=== PATIENT | male | born 1975 | race Caucasian/White ===

== ENCOUNTER 2020-05-31 09:21 | Inpatient (IN) | payer BC ==
[2020-05-31 10:07] LABS: Absolute Lymphocytes (CBC) 1.4 K/uL (0.7-4.9); Basophils % 1.2 % (0-1.3); Hematocrit 46.2 % (39.6-49.0); Lymphocytes % 9.8 % (15.3-44.8); MPV 9.9 fL (7.6-11.3); RBC Red Blood Cell Count 4.86 M/uL (4.33-5.43)
[2020-05-31] MEDS ORDERED: ONDANSETRON 4 MG/2 ML VIAL ONE ×2 (10:08→12:06)
[2020-05-31] MEDS ORDERED: KETOROLAC 30 MG/ML INJ ONE (10:08)
[2020-05-31 10:30] LABS: Bilirubin Total 0.9 mg/dL (0.2-1.0)
[2020-05-31 10:31] LABS: Albumin 4.2 g/dL (3.4-5.0); Bilirubin Direct 0.2 mg/dL (0-0.2); Protein, Total 7.9 g/dL (6.4-8.2)
--- NOTE | 2020-05-31 10:40 | RAD REPORT ---
EXAM DESCRIPTION: CT - Abdomen Pelvis W Contrast - 05/31/2020 10:18 am CLINICAL HISTORY: abd pain COMPARISON: No comparisons TECHNIQUE: Biphasic, helical CT imaging of the abdomen and pelvis was performed following 100 ml non -ionic IV contrast. No oral contrast administered. All CT scans are performed using dose optimization technique as appropriate and may include automated exposure control or mA/KV adjustment according to patient size. FINDINGS: No suspicious findings in the lung bases. Liver shows diffuse fatty infiltration. Liver size is upper normal. There are no focal liver lesions no portal vein abnormality identified. Spleen contains a 7.7 centimeter cyst or low-density mass with peripheral rim calcification. This is not felt to be of acute clinical significance. No solid or cystic mass of the pancreas identified. There is stranding and edema adjacent to the head of the pancreas and a portion of the body. Antrum of the stomach is prominent as well. There is stra nding and edema adjacent to the duodenal C-loop. Hyperdense material in the stomach could be a small amount of ingested contrast or may be an dense medication such as Pepto-Bismol. No other portion of t he gastric wall is prominent. Minimal hiatal hernia is present. Symmetric renal function is seen with no hydronephrosis or suspicious renal mass. No pyelonephritis o r acute parenchymal process. No bladder abnormalities. No adrenal abnormalities. No large or small bowel acute finding. No free air or pneumatosis. No free fluid is seen. No other a chi of inflammatory stranding. No hernia, mass or bulky lymphadenopathy. No suspicious bony findings. IMPRESSION: Edematous stranding is seen in the tissues adjacent to the pancreas, duodenal C-loop and gastric antrum. Villagomez of the gastric antrum are prominent. No solid or cystic mass of the pancreas. No CT evidence for active gallbladder process. Acute pancreatitis is suspected and needs correlation with clinical findings and laboratory findings. Antritis or duodenitis would be possible as well. Additional nonacute findings detailed in the body of the report.
[2020-05-31] MEDS ORDERED: MAGNE/ALUM HYDROXD 30 ML UCUP ONE (10:48)
[2020-05-31] MEDS ORDERED: LIDOCAINE VISCOUS 2% SOLN 15 ML UDC ONE (10:48)
[2020-05-31] MEDS ORDERED: PANTOPRAZOLE 40 MG INJ ONE (10:50)
--- NOTE | 2020-05-31 10:58 | ER ---
Nurse's Notes [facility] Name: Huber Manriquez Jr Age: 44 yrs Sex: Male : 1975 Arrival Date: 05/31/2020 Time: 09:24 Bed 19 Private MD: Diagnosis: Acute pancreatitis Presentation: 05/31 09:39 Chief complaint: Patient states: Epigastric pain that feels like "a knot" that began at ss 0400 this morning. Pt reports that last time this happened it was a "gallbladder attack.". Coronavirus screen: Client denies travel out of the [place] in the last 14 days. At this time, the client does not indicate any symptoms associated with coronavirus-19. Ebola Screen: Patient denies exposure to infectious person. Patient denies travel to an Ebola-affected area in the 21 days before illness onset. Initial Sepsis Screen: Does the patient meet any 2 criteria? No. Patient's initial sepsis screen is negative. Does the patient have a suspected source of infection? No. Patient's initial sepsis screen is negative. Risk Assessment: Do you want to hurt yourself or someone else? Patient reports no desire to harm self or others. Onset of symptoms was May 31, 2020. 09:39 Method Of Arrival: Ambulatory ss 09:39 Acuity: ENEIDA 3 ss Historical: - Allergies: 09:43 No Known Allergies; ss - Immunization history:: Adult Immunizations up to date. - Social history:: Smoking status: Patient denies any tobacco usage or history of. Patient uses alcohol, only on a social basis. Screenin:30 Abuse screen: Denies threats or abuse. Denies injuries from another. Nutritional jr10 screening: No deficits noted. Tuberculosis screening: No symptoms or risk factors identified. Fall Risk No fall in past 12 months (0 pts). No secondary diagnosis (0 pts). IV access (20 points). Ambulatory Aid- None/Bed Rest/Nurse Assist (0 pts). Gait- Normal/Bed Rest/Wheelchair (0 pts) Mental Status- Oriented to own ability (0 pts). Assessment: 10:30 General: Appears uncomfortable, Behavior is calm, cooperative, appropriate for age. jr10 Pain: Complains of pain in abdomen Pain does not radiate. Pain currently is 8 out of 10 on a pain scale. Quality of pain is described as burning, sharp, shooting, Pain began suddenly, this morning Is continuous, Aggravated by eating, drinking. Neuro: No deficits noted. Cardiovascular: No deficits noted. Respiratory: No deficits noted. Airway is patent Respiratory effort is even, unlabored, Respiratory pattern is regular, symmetrical, Breath sounds are clear bilaterally. GI: Abdomen is distended, Bowel sounds present X 4 quads. Abdomen is tender to palpation in epigastric area, right upper quadrant and left upper quadrant. : No deficits noted. No signs and/or symptoms were reported regarding the genitourinary system. EENT: No deficits noted. No signs and/or symptoms were reported regarding the EENT system. Derm: No deficits noted. No signs and/or symptoms reported regarding the dermatologic system. Musculoskeletal: No deficits noted. No signs and/or symptoms reported regarding the musculoskeletal system. 10:30 Reassessment: Pt back from CT via w/c with radiology supervisor, reports no relief with pain jr10 medication administered prior to CT. Dr Kong notified and aware. Vital Signs: 09:39 BP 150 / 95; Pulse 85; Resp 19; Temp 98.3(O); Pulse Ox 99% on R/A; Weight 88.45 kg; ss Height 5 ft. 8 in. (172.72 cm); Pain 9/10; 10:45 BP 158 / 109; Pulse 88; Resp 20; Pulse Ox 99% on R/A; Pain 8/10; jr10 12:06 BP 161 / 92; Pulse 95; Resp 20; Pulse Ox 94% on R/A; jr10 13:17 BP 155 / 92; Pulse 88; Resp 20; Pulse Ox 98% on R/A; Pain 8/10; ss 09:39 Body Mass Index 29.65 (88.45 kg, 172.72 cm) ED Course: 09:24 Patient arrived in ED. ds1 09:26 Delgado Kong MD is Attending Physician. ps1 09:39 Arm band placed on right wrist. ss 09:43 Triage completed. ss 09:58 Aspen Jackson, DEWAYNE is Primary Nurse. jr10 10:00 Inserted saline lock: 22 gauge in right antecubital area, using aseptic technique. jr10 ,using aseptic technique. via KJ, PCT Blood collected. IV is patent, is intact, with good blood return, Flushed. 10:[address] via wheelchair. md1 10:18 CT completed. Patient tolerated procedure well. Patient moved back from CT. md1 10:57 Delgado Kong MD is Hospitalizing Provider. ps1 10:57 Darshan Tejeda MD is Hospitalizing Provider. ps1 11:13 Patient has correct armband on for positive identification. Bed in low position. Call jr10 light in reach. Side rails up X2. Pulse ox on. NIBP on. 13:18 No provider procedures requiring assistance completed. Patient admitted, IV remains in ss place. intact, No redness/swelling at site. Administered Medications: 10:00 Drug: Zofran (Ondansetron) 4 mg Route: IVP; Site: right antecubital; ss 10:40 Follow up: Response: No adverse reaction jr10 10:02 Drug: TORadol - Ketorolac 15 mg Route: IVP; Site: right antecubital; ss 10:41 Follow up: Response: No adverse reaction; Pain is unchanged, physician notified jr10 10:50 Drug: ProTONIX 80 mg Route: IVP; Site: right antecubital; jr10 11:56 Follow up: Response: No adverse reaction jr10 10:50 Drug: GI Cocktail without - (Maalox Suspension 30 ml, Lidocaine Liquid 2 % 15 jr10 ml) Route: PO; 11:56 Follow up: Response: No adverse reaction; Pain is unchanged, physician notified jr10 11:56 Drug: morphine 4 mg Route: IVP; Site: right antecubital; jr10 13:15 Follow up: Response: No adverse reaction; Pain is unchanged, physician notified ss 12:05 Drug: Zofran (Ondansetron) 4 mg Route: IVP; Site: right antecubital; jr10 13:16 Follow up: Response: No adverse reaction; Pain is unchanged, physician notified Outcome: 10:57 Decision to Hospitalize by Provider. ps1 13:18 Admitted to Med/surg accompanied by tech, via wheelchair, room 213, with chart, Report ss called to DEWAYNE Huynh 13:18 Condition: stable 13:18 Instructed on the need for admit, Demonstrated understanding of instructions. 13:39 Patient left the ED. Signatures: Sunshine Pelayo ds1 Carolyn Reed RN RN ss Delgado Kong MD MD ps1 Pamela Montilla md1 Aspen Jackson, DEWAYNE RN jr10
--- NOTE | 2020-05-31 10:58 | EDPHYS ---
Physician Documentation [facility] Name: Huber Manriquez Jr Age: 44 yrs Sex: Male : 1975 Arrival Date: 05/31/2020 Time: 09:24 Bed 19 Private MD: ED Physician Delgado Kong HPI: 05/31 09:41 This 44 yrs old Male presents to ER via Unassigned with complaints of ps1 Abdominal Pain. 09:41 The patient presents with abdominal pain. Onset: The symptoms/episode began/occurred ps1 this morning. The symptoms do not radiate. The symptoms are described as sharp, stabbing. Modifying factors: the symptoms are aggravated by food. Severity of pain: At its worst the pain was severe in the emergency department the pain is unchanged. Out of town from [place]. Hx of biliary colic. Ate fried food last night. . Historical: - Allergies: 09:43 No Known Allergies; ss - Immunization history:: Adult Immunizations up to date. - Social history:: Smoking status: Patient denies any tobacco usage or history of. Patient uses alcohol, only on a social basis. ROS: 09:41 Constitutional: Negative for fever, chills, and weight loss, Eyes: Negative for injury, ps1 pain, redness, and discharge, Cardiovascular: Negative for chest pain, palpitations, and edema, Respiratory: Negative for shortness of breath, cough, wheezing, and pleuritic chest pain, MS/Extremity: Negative for injury and deformity, Skin: Negative for injury, rash, and discoloration, Neuro: Negative for headache, weakness, numbness, tingling, and seizure. 09:41 Abdomen/GI: Positive for abdominal pain. Exam: 09:41 Constitutional: This is a well developed, well nourished patient who is awake, alert, ps1 and in no acute distress. Head/Face: Normocephalic, atraumatic. Eyes: Pupils equal round and reactive to light, extra-ocular motions intact. Lids and lashes normal. Conjunctiva and sclera are non-icteric and not injected. Cardiovascular: Regular rate and rhythm. No gallops, murmurs, or rubs. Normal PMI, no JVD. No pulse deficits. Respiratory: Lungs have equal breath sounds bilaterally, clear to auscultation and percussion. No rales, rhonchi or wheezes noted. No increased work of breathing, no retractions or nasal flaring. Skin: Warm, dry with normal turgor. Normal color with no rashes, no lesions, and no evidence of cellulitis. MS/ Extremity: Pulses equal, no cyanosis. Neurovascular intact. Full, normal range of motion. Neuro: Awake and alert, GCS 15, oriented to person, place, time, and situation. Cranial nerves II-XII grossly intact. Sensory grossly intact. 09:41 Abdomen/GI: Inspection: abdomen appears normal, Palpation: mild abdominal tenderness, in the right upper quadrant. Vital Signs: 09:39 BP 150 / 95; Pulse 85; Resp 19; Temp 98.3(O); Pulse Ox 99% on R/A; Weight 88.45 kg; ss Height 5 ft. 8 in. (172.72 cm); Pain 9/10; 10:45 BP 158 / 109; Pulse 88; Resp 20; Pulse Ox 99% on R/A; Pain 8/10; jr10 12:06 BP 161 / 92; Pulse 95; Resp 20; Pulse Ox 94% on R/A; jr10 13:17 BP 155 / 92; Pulse 88; Resp 20; Pulse Ox 98% on R/A; Pain 8/10; ss 09:39 Body Mass Index 29.65 (88.45 kg, 172.72 cm) ss MDM: 09:41 Patient medically screened. ps1 10:57 Data reviewed: vital signs, nurses notes, lab test result(s), radiologic studies, and ps1 as a result, I will admit patient. Counseling: I had a detailed discussion with the patient and/or guardian regarding: the historical points, exam findings, and any diagnostic results supporting the discharge/admit diagnosis, lab results, radiology results, the need for further work-up and treatment in the hospital, Patient to be admitted NPO. Has leukocytosis with elevated glucose and transaminases. Lipase 2200. Has stranding. Will admit for fluids pain control and further evaluation and management. . 08 09:44 Order name: Basic Metabolic Panel ps1 05/31 09:44 Order name: CBC with Diff ps1 05/31 09:44 Order name: Hepatic Function ps1 05/31 09:44 Order name: Lipase ps1 05/31 10:11 Order name: CBC with Automated Diff; Complete Time: 10:24 EDMS 05/31 10:24 Interpretation: WBC 14.1. ps1 05/31 10:27 Order name: CREATININE WHOLE BLOOD; Complete Time: 10:38 EDMS 05/31 09:44 Order name: CT Abd/Pelvis - IV Contrast Only ps1 05/31 10:31 Order name: Basic Metabolic Panel; Complete Time: 10:38 EDMS 05/31 10:51 Interpretation: Abnormal: GLUC 232. ps1 05/31 10:31 Order name: Liver (Hepatic) Function; Complete Time: 10:38 EDMS 05/31 10:31 Order name: Lipase; Complete Time: 10:38 EDMS 05/31 10:50 Interpretation: Abnormal: LIP 2206. ps1 05/31 10:40 Order name: CT; Complete Time: 10:41 EDMS 05/31 09:44 Order name: IV Saline Lock; Complete Time: 09:56 ps1 05/31 09:44 Order name: Labs collected and sent; Complete Time: 09:56 ps1 Administered Medications: 10:00 Drug: Zofran (Ondansetron) 4 mg Route: IVP; Site: right antecubital; ss 10:40 Follow up: Response: No adverse reaction jr10 10:02 Drug: TORadol - Ketorolac 15 mg Route: IVP; Site: right antecubital; ss 10:41 Follow up: Response: No adverse reaction; Pain is unchanged, physician notified jr10 10:50 Drug: ProTONIX 80 mg Route: IVP; Site: right antecubital; jr10 11:56 Follow up: Response: No adverse reaction jr10 10:50 Drug: GI Cocktail without - (Maalox Suspension 30 ml, Lidocaine Liquid 2 % 15 jr10 ml) Route: PO; 11:56 Follow up: Response: No adverse reaction; Pain is unchanged, physician notified jr10 11:56 Drug: morphine 4 mg Route: IVP; Site: right antecubital; jr10 13:15 Follow up: Response: No adverse reaction; Pain is unchanged, physician notified ss 12:05 Drug: Zofran (Ondansetron) 4 mg Route: IVP; Site: right antecubital; jr10 13:16 Follow up: Response: No adverse reaction; Pain is unchanged, physician notified ss Disposition: 05/31/20 10:57 Hospitalization ordered by Darshan Tejeda for Observation. Preliminary diagnosis is Acute pancreatitis. - Bed requested for Telemetry/MedSurg (observation). - Status is Observation. ss - Condition is Stable. - Problem is new. - Symptoms are unchanged. Signatures: Dispatcher [employer] EDMS Johanny Arellano bd Carolyn Reed, DEWAYNE RN ss Delgado Kong MD MD ps1 Aspen Jackson RN RN jr10 Corrections: (The following items were deleted from the chart) 12:34 10:57 Hospitalization Ordered by Darshan Tejeda MD for Observation. Preliminary bd diagnosis is Acute pancreatitis. Bed requested for Telemetry/MedSurg (observation). Status is Observation. Condition is Stable. Problem is new. Symptoms are unchanged. ps1 13:39 12:34 05/31/2020 10:57 Hospitalization Ordered by Darshan Tejeda MD for Observation. ss Preliminary diagnosis is Acute pancreatitis. Bed requested for Telemetry/MedSurg (observation). Status is Observation. Condition is Stable. Problem is new. Symptoms are unchanged. bd
[2020-05-31] MEDS ORDERED: MORPHINE 4 MG/ML SYR ONE (11:56)
[2020-05-31] MEDS ORDERED: ACETAMINOPHEN 500 MG TAB PO PRN (14:01)
[2020-05-31] MEDS ORDERED: MORPHINE 4 MG/ML SYR IV PRN (14:01)
[2020-05-31] MEDS ORDERED: ONDANSETRON 4 MG/2 ML VIAL IV PRN (14:01)
[2020-05-31] MEDS ORDERED: HYDROMORPHONE HCL 1 MG/ML INJ IV PRN (14:07)
[2020-05-31 14:30] VITALS: BMI 29.6
[2020-05-31] MEDS: NA CHLORIDE 0.9% 1,000 ML IV SCH ×2 (14:43→21:20)
[2020-05-31] MEDS ORDERED: HYDROMORPHONE HCL 1 MG/ML INJ IV ONE (16:24)
[2020-05-31] MEDS: NICOTINE 21 MG/PAT TD SCH (16:34)
[2020-05-31] MEDS: HYDROMORPHONE HCL 1 MG/ML INJ IV PRN ×2 (19:04→21:22)
[2020-06-01] MEDS: HYDROMORPHONE HCL 1 MG/ML INJ IV PRN ×5 (00:19→20:29)
[2020-06-01] MEDS: NA CHLORIDE 0.9% 1,000 ML IV SCH ×4 (04:02→23:21)
[2020-06-01 05:41] LABS: Absolute Lymphocytes (CBC) 0.8 K/uL (0.7-4.9); Basophils % 0.4 % (0-1.3); Lymphocytes % 9.3 % (15.3-44.8); MPV 9.9 fL (7.6-11.3); RBC Red Blood Cell Count 4.43 M/uL (4.33-5.43)
[2020-06-01 05:44] LABS: Protime INR 1.04
[2020-06-01 06:14] LABS: ALT/SGPT 62 U/L (12-78); AST/SGOT 32 U/L (15-37); Albumin 3.4 g/dL (3.4-5.0); Alkaline Phosphatase 50 U/L (45-117); BUN Blood Urea Nitrogen 4 mg/dL (7-18); Bicarbonate 30 mmol/L (21-32); Bilirubin Total 1.8 mg/dL (0.2-1.0); Glucose Level 177 mg/dL (74-106); HDL Cholesterol 59 mg/dL (40-60); LDL Cholesterol, Calculated 148 (<130); Lipase 1534 U/L (73-393); Potassium 4.1 mmol/L (3.5-5.1); Protein, Total 6.8 g/dL (6.4-8.2); Sodium Level 136 mmol/L (136-145)
[2020-06-01] MEDS: NICOTINE 21 MG/PAT TD SCH (08:25)
[2020-06-01] MEDS ORDERED: chlordiazePOXIDE HCl 25 MG CAP PO ONE (13:32)
[2020-06-01] MEDS ORDERED: MAGNES/ALUMIN/SIMET 30ML UCUP PO PRN (16:42)
[2020-06-01] MEDS ORDERED: METOPROLOL TAR 25 MG TAB PO ONE (17:00)
[2020-06-01] MEDS ORDERED: NA CHLORIDE 0.9% 500 ML IV ONE (17:00)
[2020-06-01] MEDS: METOPROLOL TAR 25 MG TAB PO SCH (18:00)
[2020-06-01] MEDS: chlordiazePOXIDE HCl 5 MG CAP PO SCH (18:00)
[2020-06-01] MEDS ORDERED: NA CHLORIDE 0.9% 500 ML ONE (18:31)
[2020-06-01 23:35] VITALS: O2SAT 94
[2020-06-02] MEDS: chlordiazePOXIDE HCl 5 MG CAP PO SCH ×2 (00:45→05:28)
[2020-06-02] MEDS: NA CHLORIDE 0.9% 1,000 ML IV SCH ×2 (00:46→05:56)
[2020-06-02] MEDS: HYDROMORPHONE HCL 1 MG/ML INJ IV PRN (02:22)
[2020-06-02] MEDS: METOPROLOL TAR 25 MG TAB PO SCH (05:28)
[2020-06-02 05:29] VITALS: BP 139/82
[2020-06-02 05:46] VITALS: TEMP 98.9
[2020-06-02 06:24] LABS: Protime INR 1.14
[2020-06-02 06:27] LABS: Absolute Lymphocytes (CBC) 1.3 K/uL (0.7-4.9); Basophils % 0.4 % (0-1.3); RBC Red Blood Cell Count 4.16 M/uL (4.33-5.43)
[2020-06-02 06:49] LABS: ALT/SGPT 43 U/L (12-78); AST/SGOT 23 U/L (15-37); Albumin 2.9 g/dL (3.4-5.0); Alkaline Phosphatase 46 U/L (45-117); BUN Blood Urea Nitrogen 3 mg/dL (7-18); Bicarbonate 27 mmol/L (21-32); Bilirubin Total 1.5 mg/dL (0.2-1.0); Glucose Level 138 mg/dL (74-106); Lipase 252 U/L (73-393); Magnesium 1.8 mg/dL (1.8-2.4); NT PRO-BNP 139 pg/mL (<125); Phosphorus 1.8 mg/dL (2.5-4.9); Potassium 3.7 mmol/L (3.5-5.1); Protein, Total 6.5 g/dL (6.4-8.2); Sodium Level 137 mmol/L (136-145)
[2020-06-02] MEDS: NICOTINE 21 MG/PAT TD SCH (07:59)
--- NOTE | 2020-06-02 08:16 | P.HP ---
Certification for Inpatient Patient admitted to: Inpatient With expected LOS: >2 Midnights Patient will require the following post-hospital care: None Practitioner: I am a practitioner with admitting privileges, knowledge of patient current condition, hospital course, and medical plan of care. Services: Services provided to patient in accordance with Admission requirements found in Title 42 Section 412.3 of the Code of Federal Regulations Patient History Date of Service: 05/31/20 Reason for admission: Abdominal pain/moderate pancreatitis History of Present Illness: Patient is a 44-year-old gentleman who was visiting from out of town. He came in with severe epigastric pain which radiated to the back. He said is the worst pain of his life. He said whenever he moves around his pain becomes even more severe. He was actually on his way back home to the [facility] when he was no longer able to deal with the pain so they stopped at our local hospital. [place] and he had been drinking quite a bit. He said he was drinking more than normal. When he arrived to the emergency room his workup revealed a significantly elevated lipase level greater than 2000. He also had elevated liver enzymes. His CT scan which was discuss with the radiologist revealed moderate pancreatitis. There was no evidence of gal lstones. Would check a lipid profile as well. At this time patient will be admitted to the hospital for acute pancreatitis. Will aggressively hydrate him and make him NPO. He will be admitted for inpatient workup. Allergies No Known Allergies Allergy (Unverified 05/31/20 13:28) Home Medications: lisinopriL [Lisinopril] 10 mg PO DAILY 05/31/20 - Past Medical/Surgical History Has patient received pneumonia vaccine in the past: No Diabetic: No -: Hypertension -: Gallbladder inflammation -: Right hand surgery - Family History Father Medical History: Hypertension Mother Medical History: Hypertension, Diabetes - Social History Smoking Status: Heavy Tobacco smoker (>10 cigarettes/day) Alcohol use: Yes CD- Drugs: No Caffeine use: No Place of Residence: Home Review of Systems 10-point ROS is otherwise unremarkable Physical Examination - Vital Signs Temperature: 98.9 F Blood Pressure: 139/82 Pulse: 105 Respirations: 16 Pulse Ox (%): 95 - Physical Exam General: Alert, In no apparent distress, Oriented x3 HEENT: Atraumatic, PERRLA, Mucous membr. moist/pink, EOMI, Sclerae nonicteric Neck: Supple, 2+ carotid pulse no bruit, No LAD, Without JVD or thyroid abnormality Respiratory: Clear to auscultation bilaterally, Normal air movement Cardiovascular: Regular rate/rhythm, Normal S1 S2 Gastrointestinal: Hypoactive, Non-distended, Rigidity, Tenderness, Rebound, Guarding Musculoskeletal: No clubbing, No swelling, No tenderness Integumentary: No rashes Neurological: Normal gait, Normal speech, Normal strength at 5/5 x4 extr, Normal tone, Sensation intact, Cranial nerves 3-12 intact, Normal affect Lymphatics: No axilla or inguinal lymphadenopathy Assessment & Plan - Problems (Diagnosis) (1) Acute alcoholic pancreatitis Current Visit: Yes Status: Acute (2) Acute hepatitis Current Visit: Yes Status: Acute (3) Epigastric abdominal pain Current Visit: Yes Status: Acute (4) History of gallbladder disease Current Visit: Yes Status: Acute - Plan Plan: 1. Continue with aggressive IV hydration 2. Continue with pain control 3. Monitor lipase level 4. Monitor LFTs & PT, PTT 5. Monitor for delirium tremens 6. Librium t.i.d. 7. NPO 8. If symptoms worsen patient may need repeat CT scan or MRI to assess for necrotizing pancreatitis 9. GI and DVT prophylaxis Discharge Plan: Home Plan to discharge in: Greater than 2 days - Advance Directives Does patient have a Living Will: No Does patient have a Durable POA for Healthcare: Yes - Code Status/Comfort Care Code Status Assessed: Yes Code Status: Full Code Critical Care: No Time Spent Managing PTS Care (In Minutes): 45
--- NOTE | 2020-06-02 08:21 | P.PN ---
Subjective Date of Service: 06/01/20 Subjective: Improving, NPO, Other (Lipase significantly elevated. Patient's symptoms are slightly improved. However when he moves around in the bed he says his pain gets very severe. He was going to leave against medical advice because he wanted to get back to the [facility] to be with his daughter but because the pain was so severe he decided to leave against medical advice.) Lipase significantly elevated. Patient's symptoms are slightly improved. However when he moves around in the bed he says his pain gets very severe. He was going to leave against medical advice because he wanted to get back to the [facility] to be with his daughter but because the pain was so severe he decided to leave against medical advice. I will start him on a clear liquid diet and see how he tolerates it. He is still having severe pain but he is willing to go home to be with his daughter who is 16 years old and by herself in the [place] area. Hopefully his labs improved and he can't tolerate a clear liquid diet so we can at least discharge him tomorrow. Otherwise, he plans on leaving attending getting checked and to local hospital by where he lives. He is having some tremors. They are very mild. He also seems little more anxious than yesterday. He is a drinker so we have started him on Librium with a sip water. Hopefully, we can prevent him going into delirium tremens as well. Review of Systems 10-point ROS is otherwise unremarkable Physical Examination - Vital Signs Temperature: 98.9 F Blood Pressure: 139/82 Pulse: 105 Respirations: 16 Pulse Ox (%): 95 - Physical Exam General: Alert, In no apparent distress, Oriented x3 Respiratory: Clear to auscultation bilaterally, Normal air movement Cardiovascular: Regular rate/rhythm, Normal S1 S2, No murmurs Gastrointestinal: Normal bowel sounds, No rebound, No guarding, Distended, Tenderness Musculoskeletal: No clubbing, No swelling, No tenderness - Studies Medications List Reviewed: Yes Assessment & Plan - Problems (Diagnosis) (1) Acute alcoholic pancreatitis Current Visit: Yes Status: Acute (2) Acute hepatitis Current Visit: Yes Status: Acute (3) Epigastric abdominal pain Current Visit: Yes Status: Acute (4) History of gallbladder disease Current Visit: Yes Status: Acute (5) Alcohol withdrawal Current Visit: Yes Status: Acute - Plan Plan: 1. Continue with aggressive IV hydration 2. Continue with pain control 3. Lipase has improved 4. Bilirubin continues to increase. Coagulation profile has increased as well. Patient probably has alcoholic liver disease which he needs to refrain from alcohol use and hopefully his liver can recover. Outpatient referral to GI or liver specialist 5. Monitor for delirium tremens/started on Librium 6. NPO-but we will try clear liquids. If his pain worsens then we will go back to NPO 8. Symptoms are slightly improved in his lipase is improved. Triglycerides are not significantly elevated. However, if symptoms worsen patient may need repeat CT scan or MRI to assess for necrotizing pancreatitis 9. GI and DVT prophylaxis Discharge Plan: Home Plan to discharge in: 48 Hours - Advance Directives Does patient have a Living Will: No Does patient have a Durable POA for Healthcare: Yes - Code Status/Comfort Care Code Status: Full Code Critical Care: No Time Spent Managing PTS Care (In Minutes): 30
--- NOTE | 2020-06-07 11:50 | P.DS ---
Discharge Date: 06/02/20 Disposition: ROUTINE DISCHARGE Discharge Condition: GOOD Reason for Admission: Abdominal pain/moderate pancreatitis - Problems (1) Acute alcoholic pancreatitis Status: Acute (2) Acute hepatitis Status: Acute (3) Epigastric abdominal pain Status: Acute (4) History of gallbladder disease Status: Acute (5) Alcohol withdrawal Status: Acute Brief History of Present Illness: Patient is a 44-year-old gentleman who was visiting from out of town. He came in with severe epigastric pain which radiated to the back. He said is the worst pain of his life. He said whenever he moves around his pain becomes even more s evere. He was actually on his way back home to the [facility] when he was no longer able to deal with the pain so they stopped at our local hospital. [place] and he had been drinking quite a bit. He said he was drinking more than normal. When he arrived to the emergency room his workup revealed a significantly elevated lipase level greater than 2000. He also had elevated liver enzymes. His CT scan which was discuss with the radiologist revealed moderate pancreatitis. There was no evidence of gallstones. Would check a lipid profile as well. At this time patient will be admitted to the hospital for acute pancreatitis. Will aggressively hydrate him and make him NPO. He will be admitted for inpatient workup. Hospital Course: Patient's labs are improved. Patient is wanting to go home. He lives in [facility]. She was going to leave against medical advice but he stayed overnight and this morning he is feeling much better. At this time he is stable for discharge home with close outpatient follow up. He needs to refrain from alcohol use going forward. Vital Signs/Physical Exam: Temp Pulse Resp BP Pulse Ox 98.9 F 105 H 16 139/82 95 06/02/20 08:21 06/02/20 08:21 06/02/20 08:21 06/02/20 08:21 06/02/20 08:21 General: Alert, In no apparent distress, Oriented x3 Laboratory Data at Discharge: WBC 12.0 K/uL (4.3-10.9) H D 06/02/20 06:04 Hgb 13.5 g/dL (13.6-17.9) L 06/02/20 06:04 Hct 40.0 % (39.6-49.0) 06/02/20 06:04 Plt Count 160 K/uL (152-406) 06/02/20 06:04 PT 13.4 SECONDS (9.5-12.5) H 06/02/20 06:04 INR 1.14 06/02/20 06:04 APTT 30.5 SECONDS (24.3-36.9) 06/02/20 06:04 Sodium 137 mmol/L (136-145) 06/02/20 06:04 Potassium 3.7 mmol/L (3.5-5.1) 06/02/20 06:04 BUN 3 mg/dL (7-18) L 06/02/20 06:04 Creatinine 0.73 mg/dL (0.55-1.3) 06/02/20 06:04 Glucose 138 mg/dL (74-106) H 06/02/20 06:04 Phosphorus 1.8 mg/dL (2.5-4.9) L 06/02/20 06:04 Magnesium 1.8 mg/dL (1.8-2.4) 06/02/20 06:04 Total Bilirubin 1.5 mg/dL (0.2-1.0) H 06/02/20 06:04 AST 23 U/L (15-37) 06/02/20 06:04 ALT 43 U/L (12-78) 06/02/20 06:04 Alkaline Phosphatase 46 U/L (45-117) 06/02/20 06:04 Triglycerides 119 mg/dL (<150) 06/01/20 05:19 Cholesterol 231 mg/dL (<200) H 06/01/20 05:19 HDL Cholesterol 59 mg/dL (40-60) 06/01/20 05:19 Cholesterol/HDL Ratio 3.92 06/01/20 05:19 Lipase 252 U/L (73-393) 06/02/20 06:04 Home Medications: lisinopriL [Lisinopril] 10 mg PO DAILY 05/31/20 Metoprolol Tartrate [Lopressor*] 25 mg PO BID 6AM 6PM #60 tab 06/02/20 chlordiazePOXIDE HCl [Librium*] 5 mg PO Q8HR #30 cap 06/02/20 New Medications: chlordiazePOXIDE HCl [Librium*] 5 mg PO Q8HR #30 cap Metoprolol Tartrate [Lopressor*] 25 mg PO BID 6AM 6PM #60 tab Patient Discharge Instructions: OK TO DC IV AND DC HOME. FOLLOW-UP WITH PRIMARY CARE PROVIDER IN 1-2 WEEKS. FOLLOW-UP WITH GI IN 1-2 WEEKS. Refrain from all alcohol use and also refrain from acetaminophen use. RETURN TO THE ER IF symptoms worsen. CALL or TEXT DR. PETTY AT [phone] IF ANY QUESTIONS REGARDING HOSPITAL STAY. PLEASE CALL THE FLOOR AT [phone] IF ANY MEDICATION OR NURSING QUESTIONS. Diet: Remain on full liquid diet times 72 hr and then advance as tolerated Activity: Fall precautions Time spent managing pt's care (in minutes): 30
== END 2020-06-02 09:21 | disposition home or self-care (01) | DRG 439 ==
LOC: ER 09:21 → OBSVTOIN 13:26 → 2ND 13:26
PROVIDERS: ADMIT Hospitalist; ATTEND Hospitalist
DX: K85.20 Alcohol induced acute pancreatitis without necrosis or infection (principal); F10.239 Alcohol dependence with withdrawal, unspecified; I10 Essential (primary) hypertension; F41.9 Anxiety disorder, unspecified; K70.10 Alcoholic hepatitis without ascites; F17.210 Nicotine dependence, cigarettes, uncomplicated; R25.1 Tremor, unspecified; Z79.899 Other long term (current) drug therapy; Z11.59 Encounter for screening for other viral diseases
CPT/HCPCS: 36415; 74177; 80048; 80053; 80061; 80076; 82565; 83605; 83690; 83735; 83880; 84100; 85025; 85610; 85730; 96374; 96375; 99285; C9113; J1170; J2405; J7030; J7040; Q0161; Q9967; U0002

== ENCOUNTER 2021-04-29 21:36 | Inpatient (IN) | payer BC ==
[2021-04-29] MEDS ORDERED: FAMOTIDINE 20 MG/2 ML VIAL IV ONE (23:40)
[2021-04-29] MEDS ORDERED: MORPHINE 4 MG/ML SYR ONE (23:40)
[2021-04-29] MEDS ORDERED: ONDANSETRON 4 MG/2 ML VIAL ONE (23:40)
--- NOTE | 2021-04-30 01:21 | EDPHYS ---
Physician Documentation [facility] Name: Huber Manriquez Jr Age: 45 yrs Sex: Male : 1975 Arrival Date: 04/29/2021 Time: 21:40 Bed 8 Private MD: ED Physician Eliel Flores HPI: 04/29 23:09 This 45 yrs old Male presents to ER via Ambulatory with complaints of mh7 Abdominal Pain. 23:21 The patient presents with abdominal pain in the epigastric area. Onset: The mh7 symptoms/episode began/occurred yesterday. The symptoms do not radiate. Associated signs and symptoms: Pertinent positives: nausea and vomiting, Pertinent negatives: anorexia, blood in stools, chest pain, constipation, diarrhea, dysuria, fever, headache, hematuria, palpitations, shortness of breath, testicular pain, vomiting blood. The symptoms are described as intermittent, vague, waxing/waning. Modifying factors: The symptoms are alleviated by nothing, the symptoms are aggravated by nothing. Severity of pain: At its worst the pain was moderate last night, in the emergency department the pain is unchanged. Seen at [place] today and had labs and CT abdomen that showed pancreatitis. Patient was unable to be transferred so decided to come here.. Historical: - Allergies: 22:02 Metformin HCl; ca1 - Home Meds: 22:02 Lisinopril Oral [Active]; Metoprolol Tartrate Oral [Active]; ca1 - PMHx: 22:02 Hypertensive disorder; tachycardia; ca1 - PSHx: 22:02 None; ca1 - Immunization history:: Client reports receiving the 1st dose of the Covid vaccine, donna and donna Flu vaccine is up to date. - Social history:: Smoking status: Patient reports use of chewing tobacco. ROS: 23:21 Constitutional: Negative for fever, chills, and weight loss, Eyes: Negative for injury, mh7 pain, redness, and discharge, ENT: Negative for injury, pain, and discharge, Neck: Negative for injury, pain, and swelling, Cardiovascular: Negative for chest pain, palpitations, and edema, Respiratory: Negative for shortness of breath, cough, wheezing, and pleuritic chest pain, Back: Negative for injury and pain, : Negative for injury, bleeding, discharge, and swelling, MS/Extremity: Negative for injury and deformity, Skin: Negative for injury, rash, and discoloration, Neuro: Negative for headache, weakness, numbness, tingling, and seizure, Psych: Negative for depression, anxiety, suicide ideation, homicidal ideation, and hallucinations, Allergy/Immunology: Negative for hives, rash, and allergies, Endocrine: Negative for neck swelling, polydipsia, polyuria, polyphagia, and marked weight changes, Hematologic/Lymphatic: Negative for swollen nodes, abnormal bleeding, and unusual bruising. Exam: 23:21 Constitutional: This is a well developed, well nourished patient who is awake, alert, mh7 and in no acute distress. Head/Face: Normocephalic, atraumatic. Eyes: Pupils equal round and reactive to light, extra-ocular motions intact. Lids and lashes normal. Conjunctiva and sclera are non-icteric and not injected. Cornea within normal limits. Periorbital areas with no swelling, redness, or edema. Neck: Trachea midline, no thyromegaly or masses palpated, and no cervical lymphadenopathy. Supple, full range of motion without nuchal rigidity, or vertebral point tenderness. No Meningismus. Chest/axilla: Normal chest wall appearance and motion. Nontender with no deformity. No lesions are appreciated. Cardiovascular: Regular rate and rhythm with a normal S1 and S2. No gallops, murmurs, or rubs. Normal PMI, no JVD. No pulse deficits. Respiratory: Lungs have equal breath sounds bilaterally, clear to auscultation and percussion. No rales, rhonchi or wheezes noted. No increased work of breathing, no retractions or nasal flaring. 23:21 Back: No spinal tenderness. No costovertebral tenderness. Full range of motion. Skin: Warm, dry with normal turgor. Normal color with no rashes, no lesions, and no evidence of cellulitis. MS/ Extremity: Pulses equal, no cyanosis. Neurovascular intact. Full, normal range of motion. Neuro: Awake and alert, GCS 15, oriented to person, place, time, and situation. Cranial nerves II-XII grossly intact. Motor strength 5/5 in all extremities. Sensory grossly intact. Cerebellar exam normal. Normal gait. Psych: Awake, alert, with orientation to person, place and time. Behavior, mood, and affect are within normal limits. 23:21 Abdomen/GI: Inspection: abdomen appears normal, Bowel sounds: normal, in all quadrants, Palpation: moderate abdominal tenderness, in the epigastric area, mass, is not appreciated, rebound tenderness, is not appreciated, voluntary guarding, is not appreciated, involuntary guarding, is not appreciated, no appreciated organomegaly, Rectal exam: the exam is deferred, because of patient request, Indicators: McBurney's point is not tender, Bundy's sign is negative, Rovsing's sign is negative, Obturator sign is negative, Psoas sign is negative, Liver: no appreciated palpable abnormalities, Hernia: not appreciated. Vital Signs: 22:01 BP 141 / 87; Pulse 102; Resp 18 S; Temp 98.1(TE); Pulse Ox 96% on R/A; Weight 90.72 kg ca1 (R); Height 5 ft. 8 in. (172.72 cm) (R); Pain 9/10; 23:00 BP 130 / 80; Pulse 97; Resp 16; Pulse Ox 97% on R/A; jb4 04/30 00:00 BP 149 / 88; Pulse 96; Resp 18; Pulse Ox 95% on R/A; jb4 01:00 BP 135 / 79; Pulse 96; Resp 14; Pulse Ox 96% on R/A; jb4 04/29 22:01 Body Mass Index 30.41 (90.72 kg, 172.72 cm) ca1 MDM: 01:18 Differential diagnosis: Cholelithiasis, diverticulitis, gastritis, gastroesophageal mh7 reflux disease, non-specific abd pain, pancreatitis, Peptic Ulcer Disease, urinary tract infection. Data reviewed: vital signs, nurses notes, diagnostic data from outside facility, CBC, electrolytes, radiologic studies, CT scan, lab test result(s), amylase and lipase. Counseling: I had a detailed discussion with the patient and/or guardian regarding: the historical points, exam findings, and any diagnostic results supporting the discharge/admit diagnosis, the presence of at least one elevated blood pressure reading (>120/80) during this emergency department visit, lab results, the need for further work-up and treatment in the hospital. Response to treatment: the patient's symptoms have mildly improved after treatment. 01:20 Patient medically screened. 7 04/29 23:09 Order name: Lipase; Complete Time: :10 la1 04/29 23:09 Order name: Lipid Profile; Complete Time: 01:10 la1 04/30 01:24 Order name: SARS-COV-2 RT PCR EDMS 04/29 23:09 Order name: IV; Complete Time: 23:49 la Administered Medications: 04/29 23:30 Drug: Pepcid (famotidine) 20 mg Route: IVP; Site: right antecubital; jb4 23:32 Drug: Zofran (Ondansetron) 4 mg Route: IVP; Site: right antecubital; jb4 23:34 Drug: morphine 4 mg Route: IVP; Site: right antecubital; jb4 Disposition Summary: 04/30/21 01:20 Hospitalization Ordered Hospitalization Status: Inpatient Admission [facility] Provider: Abdelrahman Nunes [facility] Location: Telemetry/MedSurg (Inpatient) [facility] Condition: Stable [facility] Problem: an acute exacerbation [facility] Symptoms: have improved [facility] Bed/Room Type: Standard [facility] Room Assignment: 225(04/30/21 01:21) Diagnosis - Acute Pancreatitis [facility] Forms: - Medication Reconciliation Form [facility] - SBAR form [facility] Signatures: Dispatcher [employer] EDDE Ihsan Ruffin, WHEEL FITTER-C WHEEL FITTER-Cla1 Catherine Rock RN RN cg Matt Ashraf RN RN jb4 Bambi Silva RN RN ca1 Eliel Flores MD MD [facility] Corrections: (The following items were deleted from the chart) 22:03 22:02 Home Meds: None; ca1 ca1 22:03 22:02 PMHx: Hyperthyroidism; ca1 ca1 04/30 00:30 04/29 23:39 CORONAVIRUS+MR.LAB.BRZ ordered. [facility] 04/30 01:21 01:20 [facility] cg
--- NOTE | 2021-04-30 01:21 | ER ---
Nurse's Notes [facility] Name: Huber Manriquez Jr Age: 45 yrs Sex: Male : 1975 Arrival Date: 04/29/2021 Time: 21:40 Bed 8 Private MD: Diagnosis: Acute Pancreatitis Presentation: 04/29 22:01 Chief complaint: Patient states: was just discharged at [place] now with diagnosis of ca1 Pancreatitis. They told me to come here. Coronavirus screen: Client denies travel out of the [place] in the last 14 days. At this time, the client does not indicate any symptoms associated with coronavirus-19. Ebola Screen: Patient negative for fever greater than or equal to 101.5 degrees Fahrenheit, and additional compatible Ebola Virus Disease symptoms Patient denies exposure to infectious person. Patient denies travel to an Ebola-affected area in the 21 days before illness onset. No symptoms or risks identified at this time. Initial Sepsis Screen: Does the patient meet any 2 criteria? No. Patient's initial sepsis screen is negative. Does the patient have a suspected source of infection? No. Patient's initial sepsis screen is negative. Risk Assessment: Do you want to hurt yourself or someone else? Patient reports no desire to harm self or others. Onset of symptoms was April 29, 2021. 22:01 Method Of Arrival: Ambulatory ca1 22:01 Acuity: ENEIDA 3 ca1 Historical: - Allergies: 22:02 Metformin HCl; ca1 - Home Meds: 22:02 Lisinopril Oral [Active]; Metoprolol Tartrate Oral [Active]; ca1 - PMHx: 22:02 Hypertensive disorder; tachycardia; ca1 - PSHx: 22:02 None; ca1 - Immunization history:: Client reports receiving the 1st dose of the Covid vaccine, donna and donna Flu vaccine is up to date. - Social history:: Smoking status: Patient reports use of chewing tobacco. Screenin:15 Abuse screen: Denies threats or abuse. Nutritional screening: No deficits noted. jb4 Tuberculosis screening: No symptoms or risk factors identified. Fall Risk None identified. Assessment: 22:15 General: Appears in no apparent distress. uncomfortable, Behavior is calm, cooperative, jb4 appropriate for age. Pain: Complains of pain in abdomen Pain does not radiate. Pain currently is 9 out of 10 on a pain scale. Neuro: Level of Consciousness is awake, alert, obeys commands, Oriented to person, place, time, situation. Cardiovascular: Patient's skin is warm and dry. Respiratory: Airway is patent Respiratory effort is even, unlabored, Respiratory pattern is regular, symmetrical. GI: No signs and/or symptoms were reported involving the gastrointestinal system. : No signs and/or symptoms were reported regarding the genitourinary system. EENT: No signs and/or symptoms were reported regarding the EENT system. Derm: Skin is intact, Skin is pink, warm \T\ dry. Musculoskeletal: Circulation, motion, and sensation intact. Range of motion: intact in all extremities. 23:15 Reassessment: Patient appears in no apparent distress at this time. Patient and/or jb4 family updated on plan of care and expected duration. Pain level reassessed. Patient is alert, oriented x 3, equal unlabored respirations, skin warm/dry/pink. 04/30 00:15 Reassessment: Patient appears in no apparent distress at this time. Patient and/or jb4 family updated on plan of care and expected duration. Pain level reassessed. Patient is alert, oriented x 3, equal unlabored respirations, skin warm/dry/pink. Patient states feeling better. 01:20 Reassessment: Pt is resting in bed with eyes closed, respirations are even and jb4 unlabored with no s/s of pain or distress noted. Vital Signs: 04/29 22:01 BP 141 / 87; Pulse 102; Resp 18 S; Temp 98.1(TE); Pulse Ox 96% on R/A; Weight 90.72 kg ca1 (R); Height 5 ft. 8 in. (172.72 cm) (R); Pain 9/10; 23:00 BP 130 / 80; Pulse 97; Resp 16; Pulse Ox 97% on R/A; jb4 04/30 00:00 BP 149 / 88; Pulse 96; Resp 18; Pulse Ox 95% on R/A; jb4 01:00 BP 135 / 79; Pulse 96; Resp 14; Pulse Ox 96% on R/A; jb4 04/29 22:01 Body Mass Index 30.41 (90.72 kg, 172.72 cm) ca1 ED Course: 04/29 21:40 Patient arrived in ED. am4 22:02 Triage completed. ca1 22:02 Arm band placed on right wrist. ca1 22:15 Patient has correct armband on for positive identification. Bed in low position. Call jb4 light in reach. Side rails up X 1. Pulse ox on. NIBP on. 22:41 Eliel Flores MD is Attending Physician. [facility] 23:30 Initial lab(s) drawn, by nv, sent to lab. Inserted saline lock: 20 gauge in right jb4 antecubital area, using aseptic technique. Blood collected. 23:48 Matt Ashraf, RN is Primary Nurse. jb4 04/30 01:19 Abdelrahman Nunes MD is Hospitalizing Provider. [facility] 01:43 No provider procedures requiring assistance completed. Patient admitted, IV remains in jb4 place. Administered Medications: 04/29 23:30 Drug: Pepcid (famotidine) 20 mg Route: IVP; Site: right antecubital; jb4 23:32 Drug: Zofran (Ondansetron) 4 mg Route: IVP; Site: right antecubital; jb4 23:34 Drug: morphine 4 mg Route: IVP; Site: right antecubital; jb Outcome: 04/30 01:20 Decision to Hospitalize by Provider. [facility] 01:45 Admitted to Med/surg accompanied by nurse, via wheelchair, room 225, with chart. jb 01:45 Condition: stable 01:45 Discharge instructions given to patient, Instructed on the need for admit, Demonstrated understanding of instructions. 02:12 Patient left the ED. [facility] Signatures: Matt Ashraf RN RN [facility] Bambi Silva RN RN [facility] Eliel Flores MD MD [facility] [address] [facility] Corrections: (The following items were deleted from the chart) 04/29 22:03 22:02 Home Meds: None; ca1 ca1 22:03 22:02 PMHx: Hyperthyroidism; ca1 ca1
--- NOTE | 2021-04-30 01:59 | P.HP ---
Certification for Inpatient Patient admitted to: Inpatient With expected LOS: >2 Midnights Patient will require the following post-hospital care: None Practitioner: I am a practitioner with admitting privileges, knowledge of patient current condition, hospital course, and medical plan of care. Services: Services provided to patient in accordance with Admission requirements found in Title 42 Section 412.3 of the Code of Federal Regulations Patient History Date of Service: 04/30/21 Primary Care Provider: Out of town Reason for admission: Acute pancreatitis History of Present Illness: 45-year-old male with history of hypertension, diabetes mellitus type 2 presents emergency department for acute pancreatitis. Patient reports that he has been having abdominal pain, nausea, vomiting, diarrhea since yesterday, has had previous episodes of pancreatitis. Patient reports drinking 6-12 beers per day on a daily basis. Patient presented to stand-alone emergency department for evaluation this evening and had workup including CT abdomen pelvis with IV contrast which demonstrated uncomplicated acute pancreatitis and labs remarkable for white blood cell count 11.9 hemoglobin 16.8 amylase 638, AST 47 ALT 52 glucose 172 patient left against medical advice as he did not wish to be transferred by EMS and presented to the emergency department here. Lipase and lipid profile obtained lipase 8327 triglycerides 120. ED provider wishes to admit for acute pancreatitis. Allergies No Known Allergies Allergy (Unverified 05/31/20 13:28) Home Medications: lisinopriL [Lisinopril] 10 mg PO DAILY 05/31/20 Metoprolol Tartrate [Lopressor*] 25 mg PO BID 6AM 6PM #60 tab 06/02/20 chlordiazePOXIDE HCl [Librium*] 5 mg PO Q8HR #30 cap 06/02/20 - Past Medical/Surgical History Diabetic: No -: Hypertension -: Diabetes mellitus type 2 and -: Right hand surgery Psychosocial/ Personal History: Lives with family - Family History Father -: Hypertension Mother -: Hypertension, Diabetes - Social History Smoking Status: Never smoker Alcohol use: Yes CD- Drugs: No Caffeine use: No Place of Residence: Home Review of Systems 10-point ROS is otherwise unremarkable Gastrointestinal: Nausea, Vomiting, Abdominal Pain, Diarrhea Physical Examination - Physical Exam General: Alert, In no apparent distress, Oriented x3 HEENT: Atraumatic, PERRLA, Mucous membr. moist/pink Neck: Supple, 2+ carotid pulse no bruit, No LAD Respiratory: Clear to auscultation bilaterally, Normal air movement Cardiovascular: Regular rate/rhythm, Normal S1 S2 Gastrointestinal: Normal bowel sounds, No masses, No rebound, No guarding, Tenderness (Moderate epigastric tenderness) Musculoskeletal: No tenderness Integumentary: No rashes Neurological: Normal speech, Normal strength at 5/5 x4 extr, Normal tone, Normal affect - Studies Laboratory Data (last 24 hrs) 04/29/21 23:30: Triglycerides 120, Cholesterol 245 H, HDL Cholesterol 48, Cholesterol/HDL Ratio 5.10, Lipase 8327 H Assessment and Plan - Plan Assessment Acute pancreatitis likely alcohol-related Hypertension Diabetes mellitus type 2 Plan Acute pancreatitis likely alcohol-related: NPO, IVF, p.r.n. pain medications and antiemetics. Q.4h and p.r.n. alcohol withdrawal assessments, p.r.n. Ativan. Daily lipase. CT with uncomplicated pancreatitis. Anticipate clinical improvement next 48-72 hr. Advance diet as tolerated. DVT prophylaxis Lovenox 40 mg subcutaneous once daily. Hypertension: Continue home medications when appropriate Diabetes mellitus type 2: Patient denies taking any medications at home, will continue a q.6h Accu-Cheks, sliding scale insulin therapy. A1c with morning labs. Discharge Plan: Home Plan to discharge in: Greater than 2 days - Advance Directives Does patient have a Living Will: No Does patient have a Durable POA for Healthcare: Yes - Code Status/Comfort Care Code Status Assessed: Yes (Full code) Critical Care: No Time Spent Managing Pts Care (In Minutes): 55
[2021-04-30] MEDS ORDERED: LORazepam 2 MG/ML VIAL IV PRN (02:04)
[2021-04-30] MEDS ORDERED: SODIUM CHLORIDE 0.9% 10ML INJ IV PRN (02:04)
[2021-04-30] MEDS ORDERED: ONDANSETRON 4 MG/2 ML VIAL IV PRN (02:04)
[2021-04-30] MEDS: D5 0.9 NS 1,000 ML IV SCH ×3 (03:01→21:27)
[2021-04-30] MEDS: MORPHINE 2 MG/ML SYR IV PRN ×2 (03:01→08:48)
[2021-04-30 05:58] LABS: Basophils % 0.4 % (0-1.3); Hematocrit 45.4 % (39.6-49.0); Lymphocytes % 11.9 % (15.3-44.8); MPV 9.8 fL (7.6-11.3); RBC Red Blood Cell Count 4.84 M/uL (4.33-5.43)
[2021-04-30 06:00] VITALS: BMI 25.8
[2021-04-30 06:20] LABS: ALT/SGPT 46 U/L (12-78); AST/SGOT 23 U/L (15-37); Albumin 3.6 g/dL (3.4-5.0); Alkaline Phosphatase 48 U/L (45-117); BUN Blood Urea Nitrogen 5 mg/dL (7-18); Bicarbonate 27 mmol/L (21-32); Bilirubin Total 1.7 mg/dL (0.2-1.0); Glucose Level 179 mg/dL (74-106); Lipase 3783 U/L (73-393); Magnesium 2.2 mg/dL (1.8-2.4); Potassium 4.1 mmol/L (3.5-5.1); Protein, Total 6.8 g/dL (6.4-8.2); Sodium Level 135 mmol/L (136-145)
[2021-04-30] MEDS: INSULIN -REGULAR HUMAN 50 UNIT/0.5 ML ML SQ SCH ×4 (07:30→20:36)
[2021-04-30] MEDS: ENOXAPARIN 40 MG/0.4 ML SQ SCH (08:48)
[2021-04-30] MEDS: PANTOPRAZOLE 40 MG INJ IVP SCH (08:49)
[2021-04-30] MEDS: NICOTINE 21 MG/PAT TD SCH (10:27)
[2021-04-30 10:51] LABS: Urine Appearance CLEAR (Clear); Urine Bilirubin NEGATIVE (Negative); Urine Blood NEGATIVE (Negative); Urine Color YELLOW (Yellow); Urine Glucose 1+ (Negative); Urine Protein NEGATIVE (Negative); Urine Specific Gravity 1.015 (1.005-1.030); Urine Urobilinogen 0.2 mg/dL (0.2-1.0)
[2021-04-30 11:08] LABS: Urine Microscopic Reflex NO UMIC
--- NOTE | 2021-04-30 13:39 | P.PN ---
Subjective Date of Service: 04/30/21 Primary Care Provider: Out of town Chief Complaint: Acute pancreatitis Subjective: Improving (Still having moderate-severe pain, no nausea. He is thirsty and hungry. Otherwise feeling okay. no SOB/chest pain) Review of Systems 10-point ROS is otherwise unremarkable Physical Examination - Vital Signs Temperature: 98.4 F Blood Pressure: 121/71 Pulse: 100 Respirations: 16 Pulse Ox (%): 96 - Studies Laboratory Data (last 24 hrs) 04/29/21 23:30: Triglycerides 120, Cholesterol 245 H, HDL Cholesterol 48, Cholesterol/HDL Ratio 5.10, Lipase 8327 H Assessment & Plan Physician Review Additional Text: Physical Exam Gen: NAD, AAOx3 HEENT: normal conjunctiva, sclera anicteric, EOMI CV: regular rate/rhythm, no murmur, no edema Pulm: clear to auscultation bilaterally, nonlabored respirations on RA Abd: soft, moderate tenderness in epigastrium, no distention MSK: no joint swelling/erythema Neuro: normal affect, normal speech Problem List Acute alcoholic pancreatitis Hypertension Diabetes mellitus type 2, non-insulin dependent -improving, no nausea, moderate pain -advance to CLD, continue IVF through today -pain medication, anti-emetics PRN -alochol withdrawal assessments -nicotine patch provided -advance diet tomorrow if tolerates clears -counselled for 30 minutes regarding alcohol and tobacco cessation, receptive and plans on no longer drinking alcohol. plans to continue chewing tobacco VTE: lovenox Code: full Diet: CLD Dispo: anticipate dc home in 24-48hrs . Time Spent Managing Pts Care (In Minutes): 40
[2021-05-01 04:15] LABS: Absolute Lymphocytes (CBC) 1.4 K/uL (0.7-4.9); Basophils % 0.5 % (0-1.3); Hematocrit 42.4 % (39.6-49.0); Lymphocytes % 17.3 % (15.3-44.8); MPV 9.8 fL (7.6-11.3); RBC Red Blood Cell Count 4.48 M/uL (4.33-5.43)
[2021-05-01 04:28] LABS: ALT/SGPT 40 U/L (12-78); AST/SGOT 19 U/L (15-37); Albumin 3.3 g/dL (3.4-5.0); Alkaline Phosphatase 43 U/L (45-117); BUN Blood Urea Nitrogen 3 mg/dL (7-18); Bicarbonate 28 mmol/L (21-32); Bilirubin Total 1.7 mg/dL (0.2-1.0); Glucose Level 146 mg/dL (74-106); Lipase 350 U/L (73-393); Magnesium 2.3 mg/dL (1.8-2.4); Potassium 3.8 mmol/L (3.5-5.1); Protein, Total 6.7 g/dL (6.4-8.2); Sodium Level 136 mmol/L (136-145)
[2021-05-01] MEDS: INSULIN -REGULAR HUMAN 50 UNIT/0.5 ML ML SQ SCH (07:30)
[2021-05-01] MEDS: D5 0.9 NS 1,000 ML IV SCH (08:10)
[2021-05-01] MEDS: ENOXAPARIN 40 MG/0.4 ML SQ SCH (08:11)
[2021-05-01] MEDS: PANTOPRAZOLE 40 MG INJ IVP SCH (08:12)
[2021-05-01] MEDS: NICOTINE 21 MG/PAT TD SCH (08:12)
[2021-05-01 08:17] VITALS: O2SAT 94
[2021-05-01] MEDS ORDERED: POTASSIUM CL SA 10 MEQ TAB PO ONE (09:00)
[2021-05-01 10:15] VITALS: BP 138/71; TEMP 97.8
--- NOTE | 2021-05-03 20:34 | P.DS ---
Admission Date: 04/30/21 Discharge Date: 05/01/21 Primary Care Provider: Out of town Disposition: ROUTINE DISCHARGE Discharge Condition: GOOD Reason for Admission: Acute pancreatitis Procedures: Problem List Acute alcoholic pancreatitis Hypertension Diabetes mellitus type 2, non-insulin dependent Brief History of Present Illness: 45-year-old male with history of hypertension, diabetes mellitus type 2 presents emergency department for acute pancreatitis. Patient reports that he has been having abdominal pain, nausea, vomiting, diarrhea since yesterday, has had previous episodes of pancreatitis. Patient reports drinking 6-12 beers per day on a daily basis. Patient presented to stand-alone emergency department for evaluation this evening and had workup including CT abdomen pelvis with IV contrast which demonstrated uncomplicated acute pancreatitis and labs remarkable for white blood cell count 11.9 hemoglobin 16.8 amylase 638, AST 47 ALT 52 glucose 172 patient left against medical advice as he did not wish to be transferred by EMS and presented to the emergency department here. Lipase and lipid profile obtained lipase 8327 triglycerides 120. ED provider wishes to admit for acute pancreatitis. Hospital Course: Improved with IV fluid and slow advancement of diet. He improved and on day of discharge felt back to his normal self, without requiring any medication. Vital Signs/Physical Exam: Physical Exam Gen: NAD, AAOx3 HEENT: normal conjunctiva, sclera anicteric, EOMI CV: regular rate/rhythm, no murmur, no edema Pulm: clear to auscultation bilaterally, nonlabored respirations on RA Abd: soft, nontender, nondistended MSK: no joint swelling/erythema Neuro: normal affect, normal speech Temp Pulse Resp BP Pulse Ox 97.8 F 111 H 18 138/71 95 05/01/21 08:00 05/01/21 08:00 05/01/21 08:00 05/01/21 08:00 05/01/21 08:00 Laboratory Data at Discharge: WBC 8.20 K/uL (4.3-10.9) 05/01/21 03:29 Hgb 14.4 g/dL (13.6-17.9) 05/01/21 03:29 Hct 42.4 % (39.6-49.0) 05/01/21 03:29 Plt Count 182 K/uL (152-406) 05/01/21 03:29 Sodium 136 mmol/L (136-145) 05/01/21 03:29 Potassium 3.8 mmol/L (3.5-5.1) 05/01/21 03:29 BUN 3 mg/dL (7-18) L 05/01/21 03:29 Creatinine 0.79 mg/dL (0.55-1.3) 05/01/21 03:29 Glucose 146 mg/dL (74-106) H 05/01/21 03:29 Magnesium 2.3 mg/dL (1.8-2.4) 05/01/21 03:29 Total Bilirubin 1.7 mg/dL (0.2-1.0) H 05/01/21 03:29 AST 19 U/L (15-37) 05/01/21 03:29 ALT 40 U/L (12-78) 05/01/21 03:29 Alkaline Phosphatase 43 U/L (45-117) L 05/01/21 03:29 Triglycerides 120 mg/dL (<150) 04/29/21 23:30 Cholesterol 245 mg/dL (<200) H 04/29/21 23:30 HDL Cholesterol 48 mg/dL (40-60) 04/29/21 23:30 Cholesterol/HDL Ratio 5.10 04/29/21 23:30 Lipase 350 U/L (73-393) 05/01/21 03:29 Home Medications: lisinopriL [Lisinopril] 10 mg PO DAILY 05/31/20 Metoprolol Tartrate [Lopressor*] 25 mg PO BID 6AM 6PM #60 tab 06/02/20 chlordiazePOXIDE HCl [Librium*] 5 mg PO Q8HR #30 cap 06/02/20 Physician Discharge Instructions: You were found to have acute pancreatitis. Improved with IVF, bowel rest. Continue home meds, no change. Slowly advance diet to more regular foods, avoid fatty/fried foods. Avoid alcohol. Diet: Regular Activity: Ad clarissa Time spent managing pt's care (in minutes): 40
== END 2021-05-01 09:49 | disposition home or self-care (01) | DRG 440 ==
LOC: ER 21:36 → 2ND 04-30 00:13
PROVIDERS: ADMIT Hospitalist; ATTEND Hospitalist
DX: K85.20 Alcohol induced acute pancreatitis without necrosis or infection (principal); I10 Essential (primary) hypertension; E11.9 Type 2 diabetes mellitus without complications; Z20.822 Contact with and (suspected) exposure to COVID-19
CPT/HCPCS: 36415; 80053; 80061; 81003; 82947; 83036; 83690; 83735; 85025; 96374; 96375; 99285; C9113; J1650; J2270; J2405; J7042; U0003